=== PATIENT | male | born 1990 | race Caucasian/White ===

== ENCOUNTER 2017-04-10 01:02 | Emergency (ER) | payer OTHER ==
[~2017-04-10] VITALS: Ht 154.9 cm; Wt 111.6 kg
[2017-04-10] MEDS ORDERED: AMBIEN5 MG PO (01:22)
[2017-04-10] MEDS ORDERED: MINIPRESS2 MG PO (01:22)
[2017-04-10] MEDS ORDERED: RANITIDINE HCL150 MG PO (01:23)
== END 2017-04-10 02:10 | disposition home or self-care (01) ==
LOC: ED 01:02
DX: S46.911A Strain of unspecified muscle, fascia and tendon at shoulder and upper arm level, right arm, initial encounter (principal); F43.10 Post-traumatic stress disorder, unspecified; F41.9 Anxiety disorder, unspecified; F17.200 Nicotine dependence, unspecified, uncomplicated; Z90.49 Acquired absence of other specified parts of digestive tract; Z88.2 Allergy status to sulfonamides; Z88.5 Allergy status to narcotic agent; Z88.8 Allergy status to other drugs, medicaments and biological substances; Z79.899 Other long term (current) drug therapy; X58.XXXA Exposure to other specified factors, initial encounter
CPT/HCPCS: 73030; 99283